=== PATIENT | female | born 1995 | race Caucasian/White ===

== ENCOUNTER 2019-08-28 11:16 | Emergency (ER) | payer OTHER ==
[~2019-08-28] VITALS: Ht 180.3 cm; Wt 78.7 kg
--- NOTE | 2019-08-28 12:25 | REP ---
Right wrist series: Four views. History: Trauma. Findings: Four views right wrist demonstrate a incomplete fracture of the distal radial metaphysis with an associated ulnar styloid chip fracture. There is soft tissue swelling. No carpal injury. Impression: Nondisplaced distal radial metaphyseal and ulnar styloid fractures. Electronically Signed by Jaycob Berg MD 08/28/2019 12:17 P
[2019-08-28] MEDS ORDERED: PERCOCET 5MG/325MG TAB PO ONE (13:30)
[2019-08-28 15:13] VITALS: BP 130/66
[2019-08-28] MEDS ORDERED: PERC5TAB12 PO (15:13)
== END 2019-08-28 15:34 | disposition home or self-care (01) ==
LOC: M ED 11:16 → EDBD 11:16 → M ED 15:34
DX: S52.591A Other fractures of lower end of right radius, initial encounter for closed fracture (principal); S52.614A Nondisplaced fracture of right ulna styloid process, initial encounter for closed fracture; X58.XXXA Exposure to other specified factors, initial encounter; Y92.89 Other specified places as the place of occurrence of the external cause